=== PATIENT | female | born 1955 | race American Indian/Alaskan Native ===

== ENCOUNTER 2016-10-11 09:56 | Outpatient (CLI) | payer OTHER ==
[2016-10-11 10:56] LABS: Blood Urea Nitrogen 9 mg/dL (7-17)
[2016-10-11] MEDS ORDERED: NACL ONE (12:20)
--- NOTE | 2016-10-11 14:00 | Cat Scan Report ---
CT ABDOMEN AND PELVIS WITH CONTRAST INDICATION: Irritable bowel syndrome. Abdomen and pelvic pain. COMPARISON: None similar. FINDINGS: Abdomen and pelvis CT performed following oral contrast and intravenous administration of 100 cc of Omnipaque 300. LUNG BASES: Slight left lower lung scarring. Nonspecific distal esophageal wall thickening, not excluded for gastroesophageal reflux and/or hiatal hernia, amongst others. ABDOMEN: Indeterminate 4 mm left hepatic hypodensity, axial image 76, series 2. Bilateral renal cysts, the largest on the left approximately 4.5 cm. Otherwise unremarkable liver, spleen, gallbladder, pancreas, adrenals, non-aneurysmal abdominal aorta and IVC. Opacified GI tract nonobstructive. Mild to moderate colonic stool/possible constipation. Fat containing umbilical hernia with a transverse neck of 1.5 cm. PELVIS: Uterus surgically absent. Few small pelvic phleboliths. Grossly unremarkable urinary bladder and the rectosigmoid. No free fluid or significant adenopathy. Mild multilevel spinal degenerative changes, including spurring. Lower lumbar facet arthropathy. CONCLUSION: No acute CT abnormality with various incidental findings, as above. Thank you for the opportunity to participate in this patient's care.
== END 2016-10-11 09:57 | disposition home or self-care (01) ==
LOC: CT 09:56
PROVIDERS: ATTEND Internal Medicine Gastroenterology
DX: N28.1 Cyst of kidney, acquired (principal); K58.9 Irritable bowel syndrome, unspecified; R10.2 Pelvic and perineal pain; K42.9 Umbilical hernia without obstruction or gangrene; I87.8 Other specified disorders of veins; M12.88 Other specific arthropathies, not elsewhere classified, other specified site; M47.899 Other spondylosis, site unspecified; Z90.710 Acquired absence of both cervix and uterus
CPT/HCPCS: 36415; 74177; 82565; 84520; Q9967

== ENCOUNTER 2016-10-27 10:01 | Outpatient (CLI) | payer OTHER ==
--- NOTE | 2016-10-28 10:02 | Magnetic Resonance Report ---
MRI ABDOMEN WITH AND WITHOUT CONTRAST History: Abdominal pain, irritable bowel syndrome, liver mass. Technique: Multisequence, multiplanar MRI before and after IV gadolinium. Findings: The CT abdomen pelvis with contrast dated 10/11/16 was reviewed. The liver is normal size, contour and signal intensity. An approximate 1 cm focus of enhancement with delayed central filling is identified in the anterior liver which corresponds to the abnormality noted on recent CT. This lesion is consistent with a type II enhancement pattern of a cavernous hemangioma on both CT and MRI in my opinion. The remainder the liver is unremarkable. No suspicious liver mass or parenchymal disease. The hepatic vasculature is patent. There are bilateral simple renal cysts. A 1.4 cm cyst at the superior pole of the right kidney. There are 2 larger simple cysts in the mid left kidney measuring 4.3 cm each. Otherwise, the kidneys and visualized collecting systems are within normal limits. The biliary system, pancreas, spleen, adrenal glands, aorta and visualized bowel loops are unremarkable. Mild fecal retention is noted. Impression: Approximate 1 cm cavernous hemangioma of the liver as outlined above. This is likely an incidental finding and no further followup is needed from a radiologic standpoint. The liver is unremarkable otherwise. Bilateral simple renal cysts. Mild fecal retention.
== END 2016-10-27 10:02 | disposition home or self-care (01) ==
LOC: MRI 10:01
PROVIDERS: ATTEND Internal Medicine Gastroenterology
DX: N28.1 Cyst of kidney, acquired (principal); K58.9 Irritable bowel syndrome, unspecified; D18.09 Hemangioma of other sites; K59.00 Constipation, unspecified
CPT/HCPCS: 36415; 74183; 82565; 84520; A9577